=== PATIENT | female | born 1940 | race Caucasian/White ===

== ENCOUNTER 2016-10-05 05:43 | Emergency (ER) | payer OTHER ==
[~2016-10-05] VITALS: Ht 154.9 cm; Wt 72.6 kg
[~2016-10-05 05:43] MED LIST: BENADRYL25 MG PO; IBUPROFEN600 M1 PO; PREDNISONE20 M1 PO
[2016-10-05 05:51] VITALS: BP 147/67
--- NOTE | 2016-10-05 06:15 | ED NECK/BACK PAIN COMPLAINT ---
History of Present Illness General Chief Complaint: Low Back Pain/Injury Stated Complaint: LOWER BACK PAIN RADIATING INTO L LEFG Source: patient, family, old records Exam Limitations: no limitations Vital Signs & Intake/Output Vital Signs & Intake/Output Vital Signs Date Time Temp Pulse Resp B/P Pulse O2 O2 Flow FiO2 Ox Delivery Rate 10/05 0619 97 Room Air 10/05 0551 96.5 78 18 147/67 97 Room Air Allergies Coded Allergies: NO KNOWN ALLERGIES (06/24/12) Reconcile Medications Baclofen 10 MG TABLET 1 TAB PO TIDPRN PRN muscle spasm/strain Diphenhydramine HCl (Benadryl) 25 MG CAPSULE 1 CAP PO Q6-PRN PRN itchy rash Ibuprofen 600 MG TABLET 1 TAB PO Q6PRN PRN pain with food Ibuprofen 600 MG TABLET 1 TAB PO Q6PRN PRN pain with food Prednisone 20 MG TABLET 1 TAB PO BID local reaction Tramadol HCl (Ultram) 50 MG TABLET 1-2 TAB PO Q6PRN PRN severe pain Triage Note: c/o pain in low back radiating down lt leg for a couple days, taking advil with no relief Triage Nurses Notes Reviewed? yes Onset: several days Duration: day(s):, continues in ED, waxing and waning Timing: recent history Quality/Severity: moderate, radiation, sharpness Location: lumbar spine, paraspinous muscles Radiation: buttocks, upper legs Context: lifting, turning/bending Method of Injury: unknown Loss of Consciousness: no loss of consciousness Modifying Factors: immobilization, movement, rest Associated Symptoms: muscle spasm LMP (ages 10-50): post menopausal : No Patient currently breastfeeds: No HPI: Several days prior to admission patient complains of left low back pain radiating to buttocks and upper thigh described as sharp mild to moderate in severity waxing and waning worse with turning bending movement. She denies fever chills nausea vomiting diarrhea abdominal pain chest pain shortness breath headache dysuria rash bleeding change in motor sensory function change in bowel bladder habit. Past History Travel History Traveled to [place] past 21 day No Medical History Any Pertinent Medical History? see below for history Neurological: NONE EENT: NONE Cardiovascular: NONE Respiratory: NONE Gastrointestinal: NONE Hepatic: NONE Renal: NONE Musculoskeletal: NONE Psychiatric: NONE Endocrine: NONE Blood Disorders: NONE Cancer(s): NONE Surgical History Surgical History: N Psychosocial History What is your primary language Czech Tobacco Use: Never used Family History Hx Contributory? No Review of Systems Review of Systems Constitutional: Reports: no symptoms. Eyes: Reports: no symptoms. Ears, Nose, Throat, Mouth: Reports: no symptoms. Respiratory: Reports: no symptoms. Cardiovascular: Reports: no symptoms. Gastrointestinal/Abdominal: Reports: no symptoms. Musculoskeletal: Reports: see HPI, back pain. Skin: Reports: no symptoms. Neurological/Psychological: Reports: no symptoms. All Other Systems: Reviewed and Negative Physical Exam Physical Exam General Appearance: well developed/nourished, mild distress Head: atraumatic Eyes: Bilateral: PERRL, EOMI. Ears, Nose, Throat, Mouth: hearing grossly normal Neck: normal inspection, supple, full range of motion, normal alignment Respiratory: normal breath sounds, chest non-tender, no respiratory distress, quiet respiration, lungs clear Cardiovascular: regular rate/rhythm, normal peripheral pulses, norml femoral pulses equa Peripheral Pulses: 4+ carotid (R), 4+ carotid (L) Gastrointestinal: normal bowel sounds, soft, non-tender, no organomegaly Back: normal inspection, normal range of motion, no vertebral tenderness Extremities: non-tender, normal range of motion Straight Leg Raising: Right: Negative. Left: Negative. Sensory: Medial Le: L4R, L4L. Top of Foot: 2: L5R, L5L. Sole of Foot: 2: SIR, KISHORE. Motor: Deficit L4 Right: No Deficit L4 Left: No Deficit L5 Right: No Deficit L5 Left: No Deficit S1 Right: No Deficit S1 Right: No DTR: Deficit L4 Left: No Deficit L4 Right: No Deficit S1 Left: No Deficit S1 Right: No Patellar: 3: L4 Right, L4 Left. Neurologic/Psych: awake, alert, oriented x 3, normal mood/affect Skin: intact, normal color, warm/dry Progress Differential Diagnosis: herniated disc, myofascial strain, sciatica Plan of Care: Current Medications Sig/Nadia Start time Last Medication Dose Stop Time Status Admin Cyclobenzaprine HCl 10 MG ONCE ONE 10/05 614 UNVr (Flexeril 10MG Tab) 10/06 615 Ibuprofen 600 MG ONCE ONE 10/05 614 UNVr (Motrin) 10/06 615 Departure Departure Time of Disposition: 613 Disposition: HOME OR SELF CARE Condition: Stable Clinical Impression Primary Impression: Lumbago with sciatica, left side Qualifiers: Chronicity: acute Back pain laterality: left Qualified Code: M54.42 - Lumbago with sciatica, left side Referrals: ABENA WHITE,SANDI (PCP/Family) ADDI WHITE,SAM Call for orthopedic follow up Departure Forms: Customer Survey General Discharge Information Prescriptions: Current Visit Scripts Ibuprofen 1 TAB PO Q6PRN PRN pain #50 TAB with food Baclofen 1 TAB PO TIDPRN PRN muscle spasm/strain #30 TAB Tramadol HCl (Ultram) 1-2 TAB PO Q6PRN PRN severe pain #30 TAB
[2016-10-05] MEDS ORDERED: BACLOFEN10 M1 PO (06:16)
[2016-10-05] MEDS ORDERED: ULTRAM50 M1 PO (06:16)
[2016-10-05] MEDS ORDERED: IBUPROFEN600 M1 PO (06:16)
== END 2016-10-05 06:27 ==
LOC: ERH 05:43
DX: M54.42 Lumbago with sciatica, left side (principal)

== ENCOUNTER 2016-10-25 06:45 | Emergency (ER) | payer OTHER ==
[~2016-10-25] VITALS: Ht 154.9 cm; Wt 72.6 kg
[~2016-10-25 06:45] MED LIST changes: +BACLOFEN10 M1 PO; +ULTRAM50 M1 PO
[2016-10-25 06:59] VITALS: BP 124/73
--- NOTE | 2016-10-25 07:08 | ED NECK/BACK PAIN COMPLAINT ---
History of Present Illness General Chief Complaint: Lower Extremity Problems Stated Complaint: LT LOWER LEG PAIN/NUMBNES HX OF SAME Source: patient, family, old records Exam Limitations: no limitations Vital Signs & Intake/Output Vital Signs & Intake/Output Vital Signs Date Time Temp Pulse Resp B/P Pulse O2 O2 Flow FiO2 Ox Delivery Rate 10/25 0659 96.5 74 20 124/73 98 Room Air Room Air Allergies Coded Allergies: NO KNOWN ALLERGIES (06/24/12) Reconcile Medications Baclofen 10 MG TABLET 1 TAB PO TIDPRN PRN muscle spasm/strain Diphenhydramine HCl (Benadryl) 25 MG CAPSULE 1 CAP PO Q6-PRN PRN itchy rash Ibuprofen 600 MG TABLET 1 TAB PO Q6PRN PRN pain with food Ibuprofen 600 MG TABLET 1 TAB PO Q6PRN PRN pain with food Prednisone 20 MG TABLET 1 TAB PO BID local reaction Tramadol HCl (Ultram) 50 MG TABLET 1-2 TAB PO Q6PRN PRN severe pain Triage Note: PT TO ED WITH C/O PAIN TO LEFT LOWER LEG, SEEN FOR THE SAME 3 WEEKS AGO, GIVEN IBUPROFEN AND MUSCLE RELAXER, IMPROVED BUT "TINGLING TO LEFT LOWER LEG, BY NOW IT SHOULD HAVE GONE AWAY". Triage Nurses Notes Reviewed? yes HPI: Patient was seen here 3 weeks ago and diagnosed with sciatica. Patient states that since then the pain in her back has resolved however she still has a pins and needle sensation in her left miner area. The numbness and pins and needles is constant. It gets a little bit better when she elevates her leg. Patient states occasionally it feels like her leg is chronic about however she has not fallen. The pins and needles is rated as 6 out of 10. There is no radiation. There are no aggravating factors and is medicated as mentioned above. Patient has not seen her primary care physician for this. Past History Travel History Traveled to [place] past 21 day No Medical History Any Pertinent Medical History? none Neurological: NONE EENT: NONE Cardiovascular: NONE Respiratory: NONE Gastrointestinal: NONE Hepatic: NONE Renal: NONE Musculoskeletal: NONE Psychiatric: NONE Endocrine: NONE Blood Disorders: NONE Cancer(s): NONE Surgical History Surgical History: non-contributory, N Psychosocial History What is your primary language Sudanese Tobacco Use: Never used ETOH Use: denies use Illicit Drug Use: denies illicit drug use Family History Hx Contributory? No Review of Systems Review of Systems Constitutional: Reports: no symptoms. Ears, Nose, Throat, Mouth: Reports: no symptoms. Respiratory: Reports: no symptoms. Cardiovascular: Reports: no symptoms. Gastrointestinal/Abdominal: Reports: no symptoms. Musculoskeletal: Reports: see HPI. Neurological/Psychological: Reports: see HPI. Physical Exam Physical Exam General Appearance: well developed/nourished, alert, awake, anxious, mild distress Eyes: Bilateral: PERRL, EOMI. Neck: normal inspection, supple, full range of motion Respiratory: normal breath sounds, chest non-tender, no respiratory distress, lungs clear Cardiovascular: regular rate/rhythm, normal peripheral pulses Back: normal inspection, normal range of motion, no vertebral tenderness Extremities: non-tender, normal range of motion Straight Leg Raising: Right: Negative. Left: Negative. DTR: Deficit L4 Left: No Deficit L4 Right: No Deficit S1 Left: No Deficit S1 Right: No Patellar: 3: L4 Right, L4 Left. Achilles: 2: S1 Right, S1 Left. Neurologic/Psych: no motor/sensory deficits, awake, alert, oriented x 3, normal gait, normal mood/affect Comments: PT AMBULATED IN ER WITHOUT DIFFICULTY Progress Differential Diagnosis: herniated disc, myofascial strain, sciatica, T/L spine injury Plan of Care: FOLLOW UP WITH DR. BERNAL Departure Departure Disposition: HOME OR SELF CARE Condition: Stable Clinical Impression Primary Impression: Neuropathy Referrals: DOLORES WHITE,LYN KRAFT MD,SANDI (PCP/Family) Additional Instructions: FOLLOW UP WITH DR. BERNAL FOR FURTHER EVALUATION AND TREATMENT RETURN FOR ANY CONCERNS Departure Forms: Customer Survey General Discharge Information
== END 2016-10-25 07:14 ==
LOC: ERH 06:45
DX: G62.9 Polyneuropathy, unspecified (principal)
CPT/HCPCS: 99282

== ENCOUNTER 2016-11-02 02:57 | Emergency (ER) | payer OTHER ==
[~2016-11-02] VITALS: Ht 154.9 cm; Wt 72.6 kg
[2016-11-02 03:20] VITALS: BP 122/78
[2016-11-02] MEDS ORDERED: CYCLOBENZAPRINE10 M1 PO (03:38)
[2016-11-02] MEDS ORDERED: PERCOCET 5-3251 EACH PO (03:38)
--- NOTE | 2016-11-02 03:39 | ED NECK/BACK PAIN COMPLAINT ---
History of Present Illness General Chief Complaint: Hip Injury Stated Complaint: L HIP PAIN RADIATING DOWN FOOT Source: patient, family, old records Exam Limitations: no limitations Vital Signs & Intake/Output Vital Signs & Intake/Output Vital Signs Date Time Temp Pulse Resp B/P B/P Pulse O2 O2 Flow FiO2 Mean Ox Delivery Rate 11/02 0320 56 22 122/78 96 Room Air Allergies Coded Allergies: NO KNOWN ALLERGIES (06/24/12) Reconcile Medications Baclofen 10 MG TABLET 1 TAB PO TIDPRN PRN muscle spasm/strain Cyclobenzaprine HCl 10 MG TABLET 1 TAB PO Q8P PAIN OR SPASM Diphenhydramine HCl (Benadryl) 25 MG CAPSULE 1 CAP PO Q6-PRN PRN itchy rash Ibuprofen 600 MG TABLET 1 TAB PO Q6PRN PRN pain with food Ibuprofen 600 MG TABLET 1 TAB PO Q6PRN PRN pain with food Oxycodone HCl/Acetaminophen (Percocet 5-325 MG Tablet) 5 MG-325 MG TABLET 1-2 TAB PO Q6P PRN PAIN Prednisone 20 MG TABLET 1 TAB PO BID local reaction Tramadol HCl (Ultram) 50 MG TABLET 1-2 TAB PO Q6PRN PRN severe pain Triage Note: PER PT L SIDE HIP DOWN PAIN STARTED THURSDAY AM REAL BAD BUT TODAY ITS BAD, DENIES TRAUMA ITS SCIATICS Triage Nurses Notes Reviewed? yes HPI: Patient presents with increasing pain to her back radiating down her left leg. History of sciatica. Patient has been unable to follow-up with orthopedics yet for this pain. The pain is 10 out of 10 and increases with any movement. There is no weakness or numbness. There is no incontinence of bowel or bladder. There is no recent trauma. The pain is burning in nature. Past History Travel History Traveled to [place] past 21 day No Medical History Any Pertinent Medical History? none Neurological: NONE EENT: NONE Cardiovascular: NONE Respiratory: NONE Gastrointestinal: NONE Hepatic: NONE Renal: NONE Musculoskeletal: NONE Psychiatric: NONE Endocrine: NONE Blood Disorders: NONE Cancer(s): NONE Surgical History Surgical History: non-contributory, N Psychosocial History What is your primary language Korean Tobacco Use: Current Not Daily ETOH Use: denies use Illicit Drug Use: denies illicit drug use Family History Hx Contributory? No Review of Systems Review of Systems Constitutional: Reports: no symptoms. Ears, Nose, Throat, Mouth: Reports: no symptoms. Respiratory: Reports: no symptoms. Cardiovascular: Reports: no symptoms. Gastrointestinal/Abdominal: Reports: no symptoms. Musculoskeletal: Reports: see HPI, back pain. Neurological/Psychological: Reports: no symptoms. Physical Exam Physical Exam General Appearance: well developed/nourished, alert, awake, anxious, severe distress Head: atraumatic, normal appearance Eyes: Bilateral: PERRL, EOMI. Ears, Nose, Throat, Mouth: hearing grossly normal, moist mucous membrane Neck: normal inspection, supple, full range of motion, no midline tenderness Respiratory: normal breath sounds, chest non-tender, no respiratory distress, lungs clear Cardiovascular: regular rate/rhythm, normal peripheral pulses Gastrointestinal: normal bowel sounds, soft, non-tender Back: normal inspection, normal range of motion Extremities: non-tender, normal range of motion Straight Leg Raising: Right: Negative. Left: Negative. Neurologic/Psych: no motor/sensory deficits, awake, alert, oriented x 3, normal mood/affect Progress Differential Diagnosis: sciatica Plan of Care: Current Medications Sig/Nadia Start time Last Medication Dose Stop Time Status Admin Cyclobenzaprine HCl 10 MG ONCE ONE 11/02 344 UNVr (Flexeril 10MG Tab) 11/02 345 Morphine Sulfate 4 MG ONCE ONE 11/02 344 UNVr (Morphine) 11/02 345 Departure Departure Disposition: HOME OR SELF CARE Condition: Stable Clinical Impression Primary Impression: Sciatica Referrals: ABENA WHITE,SANDI (PCP/Family) LAVON WHITE,RUBY Govea Additional Instructions: FOLLOW UP WITH DR. MCKINNON, DR. DOLL OR DR. KRAFT Departure Forms: Customer Survey General Discharge Information Prescriptions: Current Visit Scripts Oxycodone HCl/Acetaminophen (Percocet 5-325 MG Tablet) 1-2 TAB PO Q6P PRN PAIN #20 TAB Cyclobenzaprine HCl 1 TAB PO Q8P #20 TAB
[2016-11-02] MEDS ORDERED: ZOFRAN ODT4 M1 SL (04:05)
== END 2016-11-02 04:14 ==
LOC: ERH 02:57
DX: M54.42 Lumbago with sciatica, left side (principal)
CPT/HCPCS: 96372; J3101